=== PATIENT | female | born 1980 ===

== ENCOUNTER 2016-07-30 12:55 | Emergency (ER) | payer OTHER ==
--- NOTE | 2016-07-30 14:58 | UC ---
UC General HPI - HPI Summary HPI Summary: The patient comes in today for: 1. Sensation of "coolness" (she denies any numbness): Onset: 13 days. Palliative/provocative: If she covers herself more, she will not feel the "coolness." During the day, it is more mild. But at night, she feels it more. If she is active, she does not feel it at all. Quality: "coolness" Region/radiation: Initially, the "coolness" was just under the left arm. But, now, she has it behind the shoulder, and upper chest, left upper arm, and the back of the hand and also the dorsum of the foot. Severity: No pain. Time: Constant. Associated symptoms: Weakness: None. Numbness: NOne. Pain: She has pain along the left scapula medially. Message or exercise makes it better. AT rest, it is OK. She also has observed that when she drinks cold water, she feel it go down retrosternally and into the upper left quadrant. She also states when she breaths, the left shoulder/scapula pain gets worse. Treatment: None. Previous evaluation: None. Previous disease: NOne. LMP: Present. * - History of Current Complaint Chief Complaint: UCUpperExtremity Stated Complaint: LEFT SIDE NUMBNESS Time Seen by Provider: 07/30/16 13:43 Hx Obtained From: Patient - Allergy/Home Medications Allergies/Adverse Reactions: Allergies Allergy/AdvReac Type Severity Reaction Status Date / Time No Known Allergies Allergy Verified 07/30/16 13:43 Home Medications: Home Medications NK [No Home Medications Reported] 07/30/16 [History Confirmed 07/30/16] PMH/Surg Hx/FS Hx/Imm Hx Previously Healthy: Yes Endocrine History Of: Denies: Diabetes, Thyroid Disease, Hyperthyroidism, Hypothyroidism, Dyslipidemia Cardiovascular History Of: Denies: Cardiac Disorders, Hypertension, Pacemaker/ICD, Myocardial Infarction , Congestive Heart Failure, Atrial Fibrillation, Deep Vein Thrombosis, Bleeding Disorders Respiratory History Of: Denies: COPD, Asthma, Bronchitis, Pneumonia, Pulmonary Embolism GI/ History Of: Denies: Gastroesophageal Reflux, Ulcer, Gastrointestinal Bleed, Gall Bladder Disease, Kidney Stones, Diverticulitis, Renal Disease, Urosepsis Neurological History Of: Denies: TIA, CVA, Dementia, Seizures, Migraine Psychological History Of: Denies: Anxiety, Depression, Bipolar Disorder, Schizophrenia, Post Traumatic Stress Disorder Cancer History Of: Denies: Lung Cancer, Colorectal Cancer, Breast Cancer, Prostate Cancer, Cervical Cancer Other History Of: Negative For: HIV, Hepatitis B, Hepatitis C, Anticoagulant Therapy - Surgical History Surgical History: None - Family History Known Family History: Negative: Cardiac Disease, Hypertension - Social History Occupation: Employed Full-time Alcohol Use: None Substance Use Type: None Smoking Status (MU): Never Smoked Tobacco Review of Systems Constitutional: Negative Skin: Negative Eyes: Negative ENT: Negative Respiratory: Negative Cardiovascular: Negative Gastrointestinal: Negative Genitourinary: Negative Motor: Negative Musculoskeletal: Arthralgia - She also complains of bilateral knee pain, but she does not take anything for it. All Other Systems Reviewed And Are Negative: Yes Physical Exam Triage Information Reviewed: Yes Appearance: Well-Appearing, No Pain Distress, Well-Nourished Vital Signs: Initial Vital Signs Temp 98.7 F 07/30/16 13:37 Pulse 72 07/30/16 13:37 Resp 18 07/30/16 13:37 BP 97/63 07/30/16 13:37 Pulse Ox 100 07/30/16 13:37 Vital Signs Reviewed: Yes Eyes: Positive: Conjunctiva Clear. Negative: Discharge ENT: Negative: Hearing grossly normal, Pharyngeal erythema, Nasal congestion, Nasal drainage, TM bulging, TM dull, TM red, Tonsillar swelling, Tonsillar exudate Dental: Negative: Gross Decay/Caries @, Dental Fracture @ Neck: Positive: Supple, Nontender, No Lymphadenopathy. Negative: Nuchal Rigidity Respiratory: Positive: Chest non-tender, Lungs clear, No respiratory distress, No accessory muscle use. Negative: Crackles, Wheezing Cardiovascular: Positive: RRR, No Murmur Abdomen Description: Positive: Nontender, No Organomegaly, Soft. Negative: Distended, Guarding Musculoskeletal: Positive: Strength Intact, ROM Intact, No Edema Neurological: Positive: Alert, Muscle Tone Normal, Other: - Neurologic exam: Inspection: No fasciculations, Tone: No rigidity. Strength: Appropriate for age and symmetrical Coordination: Upper extremity: patting thighs , w/ alternation, and finger tip to thumb touching: Normal bilaterally. Lower extremity: Heel along hathaway, normal bilaterally. Reflexes: Tricpet: 2+/2 x 2 Biceps: 2+/2 x 2 Brachioradialis: 2+/2 x 2 Patellar: 2+/2 x 2 Achilles: 2+/2 x 2 Rhomberg: Normal Gait: Normal including heel to toe Sensation: No complaints of numbness CN: II-XII normal. Psychological: Positive: Age Appropriate Behavior, Consolable Skin: Negative: rashes, breakdown Course/Dx - Course Course Of Treatment: Patient was told that I could not explain her sense of abnormal coolness. She states that this is different from what she would expect due to the weather. However, it is better during the day when it is warmer and has more clothes on, and worse at night when it is cooler. She was encouraged to get a second opinion by a specialist (neurologist) for any possible abnormality of the spinalthalamic tract. - Differential Dx - Multi-Symptom Provider Diagnoses: Paresthesias Discharge - Discharge Plan Condition: Stable Disposition: HOME Patient Education Materials: Paresthesia (ED) Forms: *School Release Referrals: No Primary Care Phys,NOPCP [Primary Care Provider] - 1 Week [facility] [place] PHYS[facility]IAN REFERRAL [Outside] Allyson Dukes MD [Medical Doctor] - Solo Dukes MD [Medical Doctor] - Additional Instructions: Please call one of the neurologists listed for a follow-up appointment for evaluation of your coldness. If you get worse, please be seen sooner in the ER.
== END 2016-07-30 15:36 | disposition home or self-care (01) ==
LOC: UCEAST 12:55
DX: R20.2 Paresthesia of skin (principal); M25.562 Pain in left knee; M25.561 Pain in right knee
CPT/HCPCS: 93005; 99201; G0463